=== PATIENT | female | born 1955 | race Caucasian/White ===

== ENCOUNTER 2016-07-21 06:10 | Inpatient (IN) | payer OTHER ==
--- NOTE | ~2016-07-21 | CN ---
Consultation Report [facility] [address] [place]. [address] NAME: RAMIRO QUINTERO : 57 STATUS : ADM Vania PAT#: [id number] AGE: 60 ADM/REG DATE : 07/21/16 MR#: [id number] REPORT SERV DATE: 07/22/16 DICTATED BY: DATE: REPORT STATUS : Draft TRANSCRIBED BY: MODL DATE: 07/21/16 NEUROLOGY CONSULTATION DATE OF CONSULTATION: 07/21/2016 REASON FOR CONSULT: Headache, dysarthria, as well as history of multiple sclerosis. HISTORY OF PRESENT ILLNESS: This is a 60-year-old female who presented to [facility] on 07/21/2016 secondary to headache as well as dysarthria and incoherent language. The patient's symptom really started between 07/18/2016 and 07/19/2016 with the patient noted to have not feeling well, and was noted to have incoherent language. Does not remember what happened. The patient's stay at home with the patient. The patient's symptoms seem to have improved after 24 to 48 hours until the evening of 07/20/2016 when patient again felt not very well and subsequently was noted to have headache and was noted to have dysarthria as well as incoherent language with the patient's symptoms appearing better today. The patient at that time was noted to have bilateral upper extremity coldness to touch and was noted to have weakness mostly in the left upper extremity as well as tingling in the bilateral hands. The patient's symptoms again are better today. The patient baseline was noted to have difficulty ambulating, require motor chair to ambulate, but patient is able to tell if the bilateral lower extremity weakness is worse recently or not. The patient otherwise denies any recent fevers. She, however, does reports recent headache in bilateral temporal area. The patient reports tenderness to touch in the bilateral temporal area but no severe pain. The patient otherwise denies visual difficulties and denies any photophobia or phonophobia. The patient did have nausea and vomiting on the evening of 07/20/2016 associated with the symptoms, but otherwise denies any chest pain or shortness of breath. The patient denies any recent illness. She does have recent adjustment of her blood pressure medication lisinopril with the patient's lisinopril increased from 5 mg to 40 mg p.o. daily secondary to elevated blood pressure. The patient reports the headache has been ongoing for a week. She does have a history of migraine headache prior to diagnosis of multiple sclerosis, but reports the headache is different from previous migraine headache. With the patient's previous migraine headache, she does get tunnel vision. The patient in addition also reports significant psychosocial stress over the past six months secondary to health issues of patient's mother. No other complaint was otherwise noted. The patient was diagnosed with multiple sclerosis around 2002. Previously seen Dr. Laureano Ferguson, had briefly tried disease modifying agent as well as steroids which patient had to stop secondary to side effects. The patient has not been on any MS disease modifying therapy for quite a while. No recent MRI has been obtained. The patient is currently not followed by Dr. Laureano Ferguson. PAST MEDICAL HISTORY: Significant for diabetes, hypertension, previous gastric bypass surgery for weight management, as well as history of multiple sclerosis, currently not on disease modifying agent. The patient also has had cholecystectomy in the past. Baseline ambulates with electric chair. Consultation Report [address] [place]. [address] NAME: RAMIRO QUINTERO : 57 STATUS : ADM Vania PAT#: [id number] AGE: 60 ADM/REG DATE : 07/21/16 MR#: [id number] REPORT SERV DATE: 07/22/16 DICTATED BY: DATE: REPORT STATUS : Draft TRANSCRIBED BY: CLARISSE DATE: 07/21/16 FAMILY HISTORY: Significant for diabetes as well as heart disease. SOCIAL HISTORY: Denies tobacco, alcohol, or recreational drug usage. ALLERGIES: THE PATIENT WAS NOTED TO HAVE ALLERGY TO IODINE CONTRAST DYE, LATEX, KIWI, SHELLFISH, WELL CILANTRO. MEDICATIONS: Home medications consist of metformin, lisinopril, aspirin, Lipitor, B complex vitamins, clonidine p.r.n., gabapentin, glyburide, insulin, multivitamins, and probiotic. REVIEW OF SYSTEMS: Negative except for those mentioned in the HPI. PHYSICAL EXAMINATION: VITAL SIGNS: At the time of evaluation, patient was noted to have vital signs T-max of 98.1, heart rate of 99 to 107, respiration of 16, blood pressure of 145/76. GENERAL: The patient is well developed, well nourished, in no acute distress. CARDIOVASCULAR: Regular rate and rhythm. No carotid bruits were otherwise auscultated. PULMONARY: Clear to auscultation bilaterally. NEUROLOGICAL: Generally, the patient is alert, oriented, to person, place, year, and month, and follows simple and two-step commands. No dysarthria or aphasia. At the time of evaluation, patient briefly is unable to recall what year it is and have to think about it for quite a while, the patient became emotional during this time. The patient otherwise is able to recall most of her recent events, has some difficulties recalling events that occurred around 07/18/2016 and 07/19/2016. The patient was noted to have intact registration, some difficulties with recall. Cranial nerves II through XII. Pupils equal, round, and reactive to light. Extraocular eye movement was noted to be intact. Intact peripheral vision. Symmetrical facial expression and sensation. Midline tongue. Normal palatal movement. Normal hearing. The patient demonstrated 5/5 bilateral upper extremity strength, reports symmetrical sensation. In bilateral upper extremities, the patient was noted to have 3/5 right lower extremity strength and was noted to have above 1/5 left lower extremity strength at the time of evaluation, still reports symmetrical sensation in bilateral lower extremities. Deep tendon reflex was 3+ in bilateral upper extremity and was noted to be 3+ in bilateral upper and bilateral lower extremity at the time of evaluation. Upgoing toe and bilateral plantar reflexes. Gait was not evaluated as the patient normally does not ambulates and uses a motorized scooter to get around the house. No ataxia was noted on [id number] examination. LABORATORY STUDIES: Demonstrated white blood cell count of 8.7, hemoglobin of 14.4, hematocrit of 41.3, platelet count of 153. Chemistry panel: Sodium 137, potassium 4.3, chloride 103, bicarb 25, BUN of 37, creatinine 1.36, glucose 182, calcium of 9.9, serum magnesium 1.2, ammonia level 14, CPK of 44, folate of 19.9, vitamin B12 of 653. TSH of 4.35 and free T4 of 1.67 with the patient's C-reactive protein noted to be 16.4. Consultation Report [facility] [address] [place]. [address] NAME: RAMIRO QUINTERO : 57 STATUS : ADM Vania PAT#: [id number] AGE: 60 ADM/REG DATE : 07/21/16 MR#: [id number] REPORT SERV DATE: 07/22/16 DICTATED BY: DATE: REPORT STATUS : Draft TRANSCRIBED BY: MODL DATE: 07/21/16 CT scan of her brain was reviewed. No acute process was otherwise noted. IMPRESSION: 1. Headache. 2. Dysarthria. 3. Multiple sclerosis. The patient is not on MS disease modifying therapy. The patient reports one week duration of bilateral temporal area headache with the temporal artery mildly tender to palpation at the time of evaluation, otherwise no vision difficulty was reported; however, patient does complain of abnormal sensation and disorientation, incoherent language overnight with dysarthria. The patient's symptom apparently improved today. We will check MRI of the brain with and without contrast given previous history of MS. We will repeat sedimentation rate and CRP, we will consider temporal artery biopsy, meanwhile we will start the patient on Depakote 125 mg IV b.i.d. for headache control. We will check urinalysis. RECOMMENDATION: 1. We will repeat sedimentation rate and CRP. 2. MRI of the brain with and without contrast. 3. Depakote 125 mg IV b.i.d. 4. Urinalysis. [facility]/CLARISSE Melecio Martel MD / [id number] CC: Jimmy Viera MD
--- NOTE | ~2016-07-21 | OP ---
Record Of Operation [facility] [address] [place]. [address] NAME: RAMIRO LYONS : 57 STATUS : ADM Vania PAT#: [id number] AGE: 60 ADM/REG DATE : 07/21/16 MR#: [id number] REPORT SERV DATE: 07/24/16 DICTATED BY: JOSE ANGEL MELGAR DATE: 07/23/16 REPORT STATUS : Draft TRANSCRIBED BY: MODL DATE: 07/23/16 DATE OF PROCEDURE: 07/23/2016 PREOPERATIVE DIAGNOSIS: Left temporal headaches with concern for temporal arteritis. POSTOPERATIVE DIAGNOSIS: Left temporal headaches with concern for temporal arteritis. PROCEDURE: Left temporal artery biopsy. SURGEON: Jose Angel Melgar M.D. EMR TRAINER: Angelo. ANESTHESIA: Local with MAC. ESTIMATED BLOOD LOSS: 20 mL. IV FLUIDS: 300 mL. SPECIMEN: Left temporal artery. COMPLICATIONS: None. INDICATION: Ms. Lyons is a pleasant, 60-year-old female with multiple sclerosis. She was admitted to the hospital for a multitude of neurological complaints. However, she also noted recent onset of bilateral temporal headaches, left worse than right. Neurology was concerned for temporal arteritis. I was asked to perform temporal artery biopsy. DETAILS OF PROCEDURE: After informed consent was obtained, the patient was brought to the operating room and placed in supine position. After administration of IV sedation, she was prepped and draped in the usual sterile fashion. A time-out was performed. I anesthetized the skin of the left shinto area. I made an incision, dissected down through subcutaneous tissues with cautery. I identified a fairly normal-appearing temporal artery. I exposed it proximally and distally, ligated, and resected approximately 2.5 cm length segment. This was passed off the table as a specimen. After that, I ensured hemostasis. I irrigated with sterile saline. I then closed the wound in layers with 3-0 Vicryl for the deep layer with running 4-0 Monocryl in subcuticular fashion for the skin. Dermabond was applied. The patient tolerated the procedure well with no complications. STACY/CLARISSE Jose Angel Melgar M.D. Record Of Operation [facility] [address] [place]. [address] NAME: RAMIRO LYONS : 57 STATUS : ADM Vania PAT#: [id number] AGE: 60 ADM/REG DATE : 07/21/16 MR#: [id number] REPORT SERV DATE: 07/24/16 DICTATED BY: JOSE ANGEL MELGAR DATE: 07/23/16 REPORT STATUS : Draft TRANSCRIBED BY: CLARISSE DATE: 07/23/16 / [id number]
--- NOTE | ~2016-07-21 | HP ---
History And Physical [facility] [address] [place]. [address] NAME: RAMIRO QUINTERO : 57 STATUS : ADM Vania PAT#: [id number] AGE: 60 ADM/REG DATE : 07/21/16 MR#: [id number] REPORT SERV DATE: 07/21/16 DICTATED BY: LAINEY LIRIANO DATE: 07/21/16 REPORT STATUS : Draft TRANSCRIBED BY: MODL DATE: 07/21/16 DATE OF ADMISSION: 07/21/2016 CHIEF COMPLAINT: Left arm weakness, numbness, slurred speech, and facial droop starting this morning at 4 o'clock, resolving after 30 minutes. HISTORY OF PRESENT ILLNESS: This is a very pleasant 60-year-old female. She has a history of MS that has been diagnosed in [address] Laureano Ferguson, [facility], with significant debility, inability to walk; also prior history of migraine; history of recent diagnosed hypertension; diabetes, type 2, insulin dependent; obesity. She has been presenting today to [facility] with symptoms that started about one week ago. She has started one week ago complaining of significant headache specially in the temporal area. She said that she did have migraine headaches in the past for which she was taking gabapentin, but these current headaches were not similar with her headaches from prior migraine. She attributed that to the recent diagnosis of new onset hypertension for which her doctor placed her on lisinopril as well as p.r.n. clonidine. She took these medications during this week since her blood pressure has been fluctuating, up and down, but the symptoms have not been improved regarding her headache and her blood pressure has not been control either. The patient felt weak yesterday and this morning around 4 o'clock, she woke up, and according to the as well as the patient, she has been having left-sided arm weakness, numbness as well as some slurred speech and some facial droop. She is telling me that the symptoms lasted about 30 to 40 minutes after which they have resolved. She did not have any diplopia. She did have some nausea and vomiting. She continued to have the headaches. No fever. No cough. No presyncopal or syncopal episodes. No palpitations. No diarrhea. No increased urinary frequency or urgency. No other complaints. The patient has been evaluated in the emergency room, and Hospitalist Service has been asked for admission for the further evaluation and treatment. The patient has not had any recent hospitalization. Her primary care provider is Dr. Ayaka Kitchen at [facility]. PAST MEDICAL HISTORY: Significant for MS, diagnosed [place] [address] Ferguson's care; hypertension; diabetes, type 2; peripheral neuropathy; morbid obesity; prior history of migraine headaches. PAST SURGICAL HISTORY: Include an ileal bypass with gastroplasty 35 years ago, cholecystectomy, and appendectomy, when she was 13. SOCIAL HISTORY: Denies tobacco, alcohol, or IV drugs. ALLERGIES: SHE IS ALLERGIC TO IODINE, LATEX, . FAMILY HISTORY: Significant for heart disease. MEDICATIONS: At home include aspirin 81 p.o. daily, Lipitor 40 p.o. daily, vitamin B complex one tablet p.o. daily, clonidine p.r.n. 0.1 p.o. twice a day, Neurontin 300 and 600 p.o. p.r.n. headaches daily, DiaBeta 5 mg with breakfast and supper, Levemir 40 units subcu twice a day, Zestril 40 p.o. daily, Glucophage 1000 p.o. b.i.d., multivitamin, and probiotic History And Physical [address] [address] NAME: RAMIRO QUINTERO : 57 STATUS : ADM Vania PAT#: [id number] AGE: 60 ADM/REG DATE : 07/21/16 MR#: [id number] REPORT SERV DATE: 07/21/16 DICTATED BY: LAINEY LIRIANO DATE: 07/21/16 REPORT STATUS : Draft TRANSCRIBED BY: MODL DATE: 07/21/16 capsules. REVIEW OF SYSTEMS: A 14-point review of systems has been obtained and pertinent positive has been listed into the history of present illness. Otherwise, negative except those underlying above. PHYSICAL EXAMINATION: VITAL SIGNS: Currently, the patient is afebrile, blood pressure 172/77, heart rate 85, respiratory rate 20, and saturating 100% on room air. GENERAL: She is a very pleasant, well-developed, well-nourished female, in no acute distress. She is alert and oriented x3. She follows all her commands appropriately. HEENT: Show pupils equal, round, reactive to light. Extraocular movements intact. No JVD. No lymphadenopathy. No thyromegaly appreciated. CHEST: Shows bilateral air entry. Clear anteroposterior. Decreased breath sounds bibasilarly. No wheezes, crackles, or rhonchi appreciated. CARDIOVASCULAR: She has regular rate and rhythm. S1, S2 positive. No S3. No S4. No murmurs, rubs, or gallops appreciated. ABDOMEN: Soft. Positive bowel sounds. Nontender. No guarding. No rebound. EXTREMITIES: No clubbing, cyanosis, or edema. NEUROLOGIC: She is alert and oriented x3. Upper extremities, neurologically, she has 5/5 sensorial, 5/5 bilateral lower extremities. Left lower extremity weaker more than right lower extremity about significant sensorial loss as well. Cranial nerves are intact. I could not assess gait. LABORATORY DATA: Labs from today include sodium 137, potassium 4.3, chloride 103, CO2 of 25, BUN 37, creatinine 1.36, glucose is 182. Her white count is 8.7, hemoglobin 14.4, hematocrit 41.3, platelets 153, INR is 1. Her CT of the brain without contrast performed in the emergency room shows mild cerebral atrophy. No acute intracranial process. ASSESSMENT: This is a very pleasant 60-year-old female with: 1. Possible transient ischemic attack versus cerebrovascular accident. 2. Headaches. 3. History of multiple sclerosis. 4. Diabetes, type 2, insulin-dependent. 5. Hypertension, recent diagnosed. 6. Hyperlipidemia. 7. Obesity. PLAN: The patient is going to be admitted for observation. 1. TIA versus CVA. We are going to place her on an aspirin. Continue on lipid-lowering agent. Order an MRI and MRA of the brain, 2D echo, and carotid ultrasound. Rule her out for OK by serial cardiac enzymes, serial EKGs. Also check vitamin B12, folic acid, hemoglobin A1c. We are going to check a fasting lipid profile and consult Dr. Martel, Neurology, for further recommendation. Neuro checks q.4 hours. 2. History of MS as per Neurology. 3. Recent diagnosed hypertension. We are going to hold her lisinopril. Place her just on small doses of beta-carmenza and provide p.r.n. hydralazine as needed. History And Physical [facility] [address] [place]. [address] NAME: RAMIRO QUINTERO : 57 STATUS : ADM Vania PAT#: [id number] AGE: 60 ADM/REG DATE : 07/21/16 MR#: [id number] REPORT SERV DATE: 07/21/16 DICTATED BY: LAINEY LIRIANO DATE: 07/21/16 REPORT STATUS : Draft TRANSCRIBED BY: MODL DATE: 07/21/16 4. Mild acute kidney injury. Vigorous IV hydration. Strict I's and O's. Strict daily weights check, UA, and urine cultures as well. Hold her lisinopril and place her on small doses of beta-blockers as well as p.r.n. hydralazine. 5. Diabetes, type 2. Continue Levemir, sliding scale insulin subcutaneously level 2. Hold metformin and also glipizide and check hemoglobin A1c. 6. Hyperlipidemia. Continue her home medications and check a fasting lipid profile. 7. Headaches. We are going to provide symptomatic treatment and await Neurology evaluation. We will provide reasonable pain and nausea control as well as GI and DVT prophylaxis. That has been discussed extensively with the patient as well as the patient's family. All the questions have been answered in full. Further workup and recommendation pending above. CF/CLARISSE Lainey Liriano M.D. / [id number] CC: Lainey Liriano M.D. [facility]
--- NOTE | ~2016-07-21 | DS ---
Discharge Summary [facility] [address] [place]. [address] NAME: RAMIRO QUINTERO : 57 STATUS : DIS IN PAT#: [id number] AGE: 60 ADM/REG DATE : 07/21/16 MR#: [id number] REPORT SERV DATE: 07/27/16 DICTATED BY: ELANA ROBIN DATE: 07/26/16 REPORT STATUS : Draft TRANSCRIBED BY: MODL DATE: 07/26/16 ADMISSION DATE: 07/21/2016 DISCHARGE DATE: 07/26/2016 CONSULTING PHYSICIAN: Neurology, Dr. Martel. FINAL DIAGNOSES: 1. Multiple sclerosis, possible acute exacerbation, improved. 2. Lhermitte's sign. 3. Migraine headaches. 4. History of B12 deficiency. 5. Uncontrolled diabetes. 6. Hypertension. DIAGNOSTIC EXAMS: CAT scan of the brain, mild cerebral atrophy, no acute intracranial process. MRI of the brain, no acute intracranial abnormality, no evidence of demyelinating disease. Chest x-ray, no acute cardiopulmonary disease. MRA of the head and neck showing unremarkable findings. Carotid ultrasound, patent, no atherosclerotic narrowing. Echocardiogram showing EF of 55%, mild diastolic dysfunction, normal right ventricular chamber size and systolic function, no evidence of significant valvular regurgitation or stenosis, no clear evidence of atrial septal defect or patent foramen ovale. HOSPITAL COURSE: Please refer to the H and P done by Dr. Lovell dated on 07/21/2016. Briefly, this is a 60-year-old female who comes in with left arm numbness. The patient has a history of multiple sclerosis, being followed by Dr. Ferguson. She has not been in to visit him as they tried several medications and she was not able to tolerate that. She has significant debility and is basically wheelchair bound. The patient started having some headache about a week ago in the temporal area. She was taking her Neurontin, but it does not help her. The patient finally came to the hospital when she started having some left arm numbness, slurring speech, and noted a facial droop. She was diagnosed with possible TIA versus CVA. She got her neurological symptoms back when she was examined by Dr. Lovell on admission. So, thinking that she might have a TIA, we did the above test, which was unremarkable. We got Neurology involved because of the pattern of the headache. They thought it was temporal arteritis. She was started on steroids and a biopsy was done and they signed out. The patient already has an uncontrolled diabetes. She was started on insulin three weeks ago and she has been bringing it up. Now, when she got in, she was on 40 units twice a day and it was still uncontrolled as she is on steroids. When we got the pathology back that was negative for temporal arteritis, we stopped the steroids and we reconsulted Neurology. Upon further history, we believe that the patient probably had an MS exacerbation and possible migraine as well. She was started on Topamax and fortunately, she did not have any more of these neurological findings and the headache has resolved in the last 24 hours. The patient expressed her wishes to go home and the sugar is much controlled now that she is off the prednisone. She will be discharged today with the above diagnosis. DISCHARGE MEDICATIONS: She will be on the following medications: Aspirin 81 mg a day, Lipitor 40 mg a day, vitamin B12 1000 mcg IM every month, Levemir 40 units twice a day, Discharge Summary [address] [address] NAME: RAMIRO QUINTERO : 57 STATUS : DIS IN PAT#: [id number] AGE: 60 ADM/REG DATE : 07/21/16 MR#: [id number] REPORT SERV DATE: 07/27/16 DICTATED BY: ELANA ROBIN DATE: 07/26/16 REPORT STATUS : Draft TRANSCRIBED BY: CLARISSE DATE: 07/26/16 subcu insulin protocol level 3, lisinopril 40 mg a day, multivitamin once a day, vitamin B complex once a day, Lopressor 25 mg twice a day, Nystatin powder to affected areas, Topamax 25 mg at bedtime, metformin 1000 mg twice a day, probiotic capsule once a day. The patient will need to follow up with her PCP, Ayaka Kitchen, to follow up her sugar and to get her vitamin B12 shots once a month. She needs to have her B12 checked in order for this to continue. She will also need to have her thyroid function test check probably in a month or two as we got equivocal findings with an elevated TSH and elevated free T4. The patient will not be given any medications for the thyroid. She will also be following up with Dr. Ferguson in two to three weeks as there are new medications for migraines and MS and they might want to explore that this time. This has been explained to the patient in front of the . TIME SPENT: 35 minutes. MARCUS/CLARISSE Elana Robin M.D. / [id number] CC: Jimmy Mackey MD Matthew Kodsi, M.D., PhD.
[2016-07-21 08:10] LABS: BASOPHILS 0.3 %; BASOPHILS ABSOLUTE 0.03 10/3/uL (0.0-0.16); EOSINOPHILS 2.5 %; EOSINOPHILS ABSOLUTE 0.22 10/3/uL (0.0-0.53); HEMATOCRIT 41.3 % (36.0-48.0); HEMOGLOBIN 14.4 g/dL (12.0-16.0); IMMATURE GRANULOCYTES 0.2 %; IMMATURE GRANULOCYTES ABSOLUTE 0.02 10/3/uL (0.0-0.11); LYMPHOCYTES 16.1 %; MEAN CORPUS HGB CONC 34.9 g/dL (32.0-36.0); MEAN CORPUSCULAR HEMOGLOB 31.7 pg (26.0-34.0); MONOCYTES 4.8 %; MONOCYTES ABSOLUTE 0.42 10/3/uL (0.21-1.20); NEUTROPHILS 76.1 %; PLATELET COUNT 153 10/3/uL (150-400); RED CELL COUNT 4.54 10/6/uL (4.0-5.6)
[2016-07-21 08:11] LABS: MANUAL DIFF NO %; WHITE BLOOD CELLS 8.7 10/3/uL (4.5-10.5)
[2016-07-21 08:21] LABS: CHLORIDE, SERUM 103 MMOL/L (96-112); CO2 (CARBON DIOXIDE) 25 MMOL/L (24-34); POTASSIUM, SERUM 4.3 MMOL/L (3.5-5.3); SODIUM, SERUM 137 MMOL/L (135-148)
[2016-07-21 08:32] LABS: PARTIAL THROMBO TIME 25.1 SEC (22.5-37.2); PROTIME (NOT ORD) 12.6 SEC (12.0-14.5)
[2016-07-21 08:35] LABS: BUN (BLOOD UREA NITROGEN) 37 MG/DL (6-23); CALCIUM, SERUM 9.9 MG/DL (8.5-10.4); CREATININE 1.36 MG/DL (0.55-1.02); GFR AFRICAN AMERICAN 49 ML/MIN (>=60); GFR NON AFRICAN AMERICAN 42 ML/MIN (>=60); GLUCOSE, SERUM 182 MG/DL (60-99)
[2016-07-21] MEDS ORDERED: LEVEMIR SC (10:40)
[2016-07-21] MEDS ORDERED: GLUCOPHAGE1000 MG PO (10:40)
[2016-07-21] MEDS ORDERED: ZESTRIL40 MG PO (10:41)
[2016-07-21] MEDS ORDERED: NEUR300 PO (10:41)
[2016-07-21] MEDS ORDERED: CAT1 PO (10:41)
[2016-07-21] MEDS ORDERED: SUPER B COMP PO (10:42)
[2016-07-21] MEDS ORDERED: ASAB PO (10:42)
[2016-07-21] MEDS ORDERED: MULTIVITAMI1 PO (10:42)
[2016-07-21] MEDS ORDERED: DIABETA5 PO (10:42)
[2016-07-21] MEDS ORDERED: LIPITOR40 PO (10:42)
[2016-07-21] MEDS ORDERED: PROBIOTIC CAPSULE PO (10:42)
[2016-07-21 16:28] LABS: ALBUMIN 3.1 G/DL (3.5-5.0); ALKALINE PHOSPHATASE 104 U/L (45-117); C-REACTIVE PROTEIN 16.4 MG/L (<8.0); CPK 44 U/L (0-200); DIRECT BILIRUBIN 0.2 MG/DL (0.0-0.4); FREE T4 1.67 NG/DL (0.76-1.46); INDIRECT BILIRUBIN(NOT ORDER) 0.6 MG/DL (0.1-0.9); PHOSPHORUS, SERUM 3.6 MG/DL (2.5-4.5); SGOT(AST) 13 U/L (5-40); SGPT(ALT) 16 U/L (5-65); TOTAL BILIRUBIN 0.8 MG/DL (0-1.2); TOTAL PROTEIN 6.7 G/DL (6.0-8.5); TROPONIN I <0.02 NG/ML (<0.05)
[2016-07-21 16:29] LABS: CK-MB 0.8 NG/ML; FOLATE 19.9 NG/ML (>5.2)
[2016-07-21 16:34] LABS: B NATRIURETIC PEPTIDE (BNP) 29.3 PG/ML (< 100.0)
[2016-07-21 16:43] LABS: PROCALCITONIN 0.09 ng/mL (<0.5)
[2016-07-21 23:28] LABS: CPK 54 U/L (0-200); TROPONIN I <0.02 NG/ML (<0.05)
[2016-07-21 23:30] LABS: CK-MB 0.7 NG/ML
[2016-07-22 02:49] LABS: GLYCOHEMOGLOBIN (HbA1c) 9.5 % (4.7-6.1)
[2016-07-22 07:06] LABS: BASOPHILS 0.3 %; BASOPHILS ABSOLUTE 0.02 10/3/uL (0.0-0.16); EOSINOPHILS 2.4 %; EOSINOPHILS ABSOLUTE 0.16 10/3/uL (0.0-0.53); HEMOGLOBIN 12.2 g/dL (12.0-16.0); IMMATURE GRANULOCYTES 0.2 %; IMMATURE GRANULOCYTES ABSOLUTE 0.01 10/3/uL (0.0-0.11); LYMPHOCYTES 24.7 %; LYMPHOCYTES ABSOLUTE 1.63 10/3/uL (0.67-4.30); MEAN CORPUS HGB CONC 33.8 g/dL (32.0-36.0); MEAN CORPUSCULAR HEMOGLOB 30.9 pg (26.0-34.0); MEAN CORPUSCULAR VOLUME 91.4 fL (80-100); MEAN PLATELET VOLUME 11.5 fL (9.2-13.0); MONOCYTES 8.3 %; MONOCYTES ABSOLUTE 0.55 10/3/uL (0.21-1.20); NEUTROPHILS 64.1 %; NEUTROPHILS ABSOLUTE 4.24 10/3/uL (2.02-8.40); PLATELET COUNT 153 10/3/uL (150-400); RED CELL COUNT 3.95 10/6/uL (4.0-5.6); WHITE BLOOD CELLS 6.6 10/3/uL (4.5-10.5)
[2016-07-22 07:10] LABS: HEMATOCRIT 36.1 % (36.0-48.0); MANUAL DIFF NO %
[2016-07-22 07:17] LABS: TROPONIN I <0.02 NG/ML (<0.05)
[2016-07-22 07:18] LABS: CK-MB 0.7 NG/ML; CPK 73 U/L (0-200)
[2016-07-22 07:24] LABS: BUN (BLOOD UREA NITROGEN) 35 MG/DL (6-23); CHLORIDE, SERUM 103 MMOL/L (96-112); CO2 (CARBON DIOXIDE) 27 MMOL/L (24-34); GFR AFRICAN AMERICAN 57 ML/MIN (>=60); GFR NON AFRICAN AMERICAN 49 ML/MIN (>=60); GLUCOSE, SERUM 181 MG/DL (60-99); HDL CHOLESTEROL 42 MG/DL (> 49); LDL CHOLESTEROL 83 MG/DL (< 130); NON-HDL CHOLESTEROL 128 MG/DL (< 160); POTASSIUM, SERUM 4.1 MMOL/L (3.5-5.3); SODIUM, SERUM 137 MMOL/L (135-148); TRIGLYCERIDE 225 MG/DL (< 150)
[2016-07-22 07:25] LABS: CALCIUM, SERUM 8.8 MG/DL (8.5-10.4); CHOLESTEROL 170 MG/DL (< 200)
[2016-07-22 07:33] LABS: C-REACTIVE PROTEIN 13.3 MG/L (<8.0)
[2016-07-22 07:57] LABS: SED RATE 72 MM/HR (0-20)
[2016-07-22 13:53] LABS: ASCORBIC ACID (UR NOT ORDER) NEG (NEG); BILIRUBIN, URINE NEGATIVE (NEG); KETONE, URINE NEGATIVE (NEG); LEUKOCYTE ESTERASE(NOT OR SMALL (NEG); WBC (NOT ORDERED) (RFLEX) 23 (0-5)
[2016-07-23 06:07] LABS: BASOPHILS 0.2 %; BASOPHILS ABSOLUTE 0.01 10/3/uL (0.0-0.16); EOSINOPHILS 0 %; HEMATOCRIT 35.4 % (36.0-48.0); HEMOGLOBIN 12.2 g/dL (12.0-16.0); IMMATURE GRANULOCYTES 0.5 %; IMMATURE GRANULOCYTES ABSOLUTE 0.03 10/3/uL (0.0-0.11); LYMPHOCYTES 12.3 %; LYMPHOCYTES ABSOLUTE 0.81 10/3/uL (0.67-4.30); MEAN CORPUS HGB CONC 34.5 g/dL (32.0-36.0); MEAN CORPUSCULAR HEMOGLOB 31.1 pg (26.0-34.0); MEAN CORPUSCULAR VOLUME 90.3 fL (80-100); MEAN PLATELET VOLUME 11.2 fL (9.2-13.0); MONOCYTES 6.5 %; MONOCYTES ABSOLUTE 0.43 10/3/uL (0.21-1.20); NEUTROPHILS 80.5 %; PLATELET COUNT 176 10/3/uL (150-400); RBC DISTRIBUTION WIDTH 13.6 % (12.0-16.0); RED CELL COUNT 3.92 10/6/uL (4.0-5.6); WHITE BLOOD CELLS 6.6 10/3/uL (4.5-10.5)
[2016-07-23 06:08] LABS: MANUAL DIFF NO %
[2016-07-23 06:21] LABS: CALCIUM, SERUM 8.2 MG/DL (8.5-10.4); CHLORIDE, SERUM 104 MMOL/L (96-112); CO2 (CARBON DIOXIDE) 24 MMOL/L (24-34); CREATININE 1.32 MG/DL (0.55-1.02); GFR AFRICAN AMERICAN 51 ML/MIN (>=60); GFR NON AFRICAN AMERICAN 44 ML/MIN (>=60); POTASSIUM, SERUM 4.4 MMOL/L (3.5-5.3); SODIUM, SERUM 137 MMOL/L (135-148)
[2016-07-23 06:22] LABS: BUN (BLOOD UREA NITROGEN) 30 MG/DL (6-23); GLUCOSE, SERUM 261 MG/DL (60-99)
[2016-07-24 06:06] LABS: BASOPHILS 0.4 %; BASOPHILS ABSOLUTE 0.03 10/3/uL (0.0-0.16); EOSINOPHILS 1.3 %; EOSINOPHILS ABSOLUTE 0.09 10/3/uL (0.0-0.53); HEMOGLOBIN 11.2 g/dL (12.0-16.0); IMMATURE GRANULOCYTES 0.3 %; IMMATURE GRANULOCYTES ABSOLUTE 0.02 10/3/uL (0.0-0.11); LYMPHOCYTES 34.4 %; LYMPHOCYTES ABSOLUTE 2.32 10/3/uL (0.67-4.30); MEAN CORPUS HGB CONC 33.9 g/dL (32.0-36.0); MEAN CORPUSCULAR HEMOGLOB 31.1 pg (26.0-34.0); MEAN CORPUSCULAR VOLUME 91.7 fL (80-100); MEAN PLATELET VOLUME 11.4 fL (9.2-13.0); MONOCYTES 7.6 %; MONOCYTES ABSOLUTE 0.51 10/3/uL (0.21-1.20); NEUTROPHILS ABSOLUTE 3.77 10/3/uL (2.02-8.40); PLATELET COUNT 157 10/3/uL (150-400); RBC DISTRIBUTION WIDTH 13.9 % (12.0-16.0); WHITE BLOOD CELLS 6.7 10/3/uL (4.5-10.5)
[2016-07-24 06:14] LABS: MANUAL DIFF NO %
[2016-07-24 06:17] LABS: BUN (BLOOD UREA NITROGEN) 33 MG/DL (6-23); CALCIUM, SERUM 7.6 MG/DL (8.5-10.4); CHLORIDE, SERUM 110 MMOL/L (96-112); CO2 (CARBON DIOXIDE) 23 MMOL/L (24-34); CREATININE 1.48 MG/DL (0.55-1.02); GFR AFRICAN AMERICAN 44 ML/MIN (>=60); GFR NON AFRICAN AMERICAN 38 ML/MIN (>=60); GLUCOSE, SERUM 216 MG/DL (60-99); POTASSIUM, SERUM 4.3 MMOL/L (3.5-5.3); SODIUM, SERUM 143 MMOL/L (135-148)
[2016-07-25 05:29] LABS: BASOPHILS 0.2 %; BASOPHILS ABSOLUTE 0.02 10/3/uL (0.0-0.16); EOSINOPHILS 0.1 %; EOSINOPHILS ABSOLUTE 0.01 10/3/uL (0.0-0.53); HEMATOCRIT 33.3 % (36.0-48.0); HEMOGLOBIN 11.3 g/dL (12.0-16.0); IMMATURE GRANULOCYTES 0.2 %; IMMATURE GRANULOCYTES ABSOLUTE 0.02 10/3/uL (0.0-0.11); LYMPHOCYTES 17.1 %; LYMPHOCYTES ABSOLUTE 1.46 10/3/uL (0.67-4.30); MEAN CORPUS HGB CONC 33.9 g/dL (32.0-36.0); MEAN CORPUSCULAR HEMOGLOB 31.1 pg (26.0-34.0); MEAN CORPUSCULAR VOLUME 91.7 fL (80-100); MEAN PLATELET VOLUME 11.1 fL (9.2-13.0); MONOCYTES 7.3 %; MONOCYTES ABSOLUTE 0.62 10/3/uL (0.21-1.20); NEUTROPHILS 75.1 %; PLATELET COUNT 163 10/3/uL (150-400); RBC DISTRIBUTION WIDTH 13.8 % (12.0-16.0); RED CELL COUNT 3.63 10/6/uL (4.0-5.6); WHITE BLOOD CELLS 8.5 10/3/uL (4.5-10.5)
[2016-07-25 05:30] LABS: MANUAL DIFF NO %
[2016-07-25 05:50] LABS: BUN (BLOOD UREA NITROGEN) 34 MG/DL (6-23); CALCIUM, SERUM 7.8 MG/DL (8.5-10.4); CHLORIDE, SERUM 109 MMOL/L (96-112); CO2 (CARBON DIOXIDE) 20 MMOL/L (24-34); CREATININE 1.25 MG/DL (0.55-1.02); GFR AFRICAN AMERICAN 55 ML/MIN (>=60); GFR NON AFRICAN AMERICAN 47 ML/MIN (>=60); POTASSIUM, SERUM 4.6 MMOL/L (3.5-5.3); SODIUM, SERUM 141 MMOL/L (135-148)
[2016-07-25 05:52] LABS: GLUCOSE, SERUM 117 MG/DL (60-99)
[2016-07-25 12:56] LABS: ASCORBIC ACID (UR NOT ORDER) NEG (NEG); BILIRUBIN, URINE NEGATIVE (NEG); KETONE, URINE NEGATIVE (NEG); LEUKOCYTE ESTERASE(NOT OR NEG (NEG); WBC (NOT ORDERED) (RFLEX) 4 (0-5)
[2016-07-26] MEDS ORDERED: NOVOLOG SC (09:36)
[2016-07-26] MEDS ORDERED: LOP25 PO (09:38)
[2016-07-26] MEDS ORDERED: NYSTATPOW TOP (09:38)
[2016-07-26] MEDS ORDERED: TOPAMAX25 PO (09:39)
[2016-07-26] MEDS ORDERED: B121000P IM (09:45)
== END 2016-07-26 11:26 | disposition home or self-care (01) | DRG 41 ==
LOC: ER 06:10 → 2SO 11:48
PROVIDERS: Emergency Medicine; Internal Medicine; Surgery
PROC: 03BT0ZX Excision of Left Temporal Artery, Open Approach, Diagnostic (ICD-10-PCS; principal; 2016-07-23 13:15)
DX: G35 Multiple sclerosis (principal); N17.9 Acute kidney failure, unspecified; E11.42 Type 2 diabetes mellitus with diabetic polyneuropathy; E11.65 Type 2 diabetes mellitus with hyperglycemia; I10 Essential (primary) hypertension; E78.5 Hyperlipidemia, unspecified; E66.9 Obesity, unspecified; R51 Headache; E53.8 Deficiency of other specified B group vitamins; G44.009 Cluster headache syndrome, unspecified, not intractable; Z98.890 Other specified postprocedural states; Z88.8 Allergy status to other drugs, medicaments and biological substances; Z91.040 Latex allergy status; Z79.4 Long term (current) use of insulin; Z98.84 Bariatric surgery status; Z88.5 Allergy status to narcotic agent; Z91.013 Allergy to seafood; Z91.018 Allergy to other foods
CPT/HCPCS: 70450; 70544; 70547; 70551; 71010; 80048; 80061; 80076; 81001; 82140; 82150; 82550; 82553; 82607; 82746; 82962; 83036; 83615; 83690; 83735; 83880; 84100; 84145; 84439; 84443; 84481; 84484; 85025; 85610; 85652; 85730; 86140; 87077; 87086; 87186; 88305; 88313; 93005; 93880; 97161-GP; 97165-GO; 99285; A9270-GY; C8929; J0360; J2250; J2405; J2765; J3010; J3475; Q9957